=== PATIENT | female | born 1955 | race Caucasian/White ===

== ENCOUNTER → 2021-04-11 | Outpatient (CLI) | payer MEDICARE ==
[2015-03-11 15:32] VITALS: BP 149/74
[~2021-04-11] MED LIST: LOSA1TAB19 PO; SERT25TA PO
--- NOTE | 2021-04-11 18:17 | KCIC ---
Bilateral digital screening 2-D and 3-D (digital breast tomosynthesis) mammogram: Reason for examination: Routine screening. Comparison: Mammogram from 01/15/2017. Interpretation was made with the benefit of CAD. FINDINGS: Breast density: Category B. There are scattered areas of fibroglandular density. In the 6:30 position of the right breast, approximately 5 cm from the nipple at middle depth, there i s a new oval 1.5 cm mass. Slightly anterior to this there are smaller described masses measuring 6 mm 4 mm. There are other small oval circumscribed masses in both breasts which do not appear significantly jesu nged. No malignant appearing calcifications, or architectural distortion is seen. IMPRESSION: New masses in the 6:30 position of the right breast which need further evaluation with the targeted r ight breast ultrasound. Assessment: BI-RADS 0. Incomplete. Additional imaging is recommended. Recommendation: Targeted right breast ultrasound. The patient will be contacted with results and additional imaging scheduled. The patient will receive a letter with the results in the mail. Patient information will be entered into the mammography [employer] system with a target recall date for the next mammogram. A reminder letter will be generated. Electronically signed by: Saige Herrera MD (04/11/2021 6:14 PM) [email or web address]
== END ==
LOC: KCIC MAMMO 11:03
PROVIDERS: ATTEND Family Medicine
DX: Z12.31 Encounter for screening mammogram for malignant neoplasm of breast (principal)
CPT/HCPCS: 77063; 77067

== ENCOUNTER → 2021-05-05 | Outpatient (CLI) | payer MEDICARE ==
[2015-03-11 15:32] VITALS: BP 149/74
--- NOTE | 2021-05-05 12:18 | KCIC ---
Right breast ultrasound: Reason for examination: Nodular densities on screening mammogram. Comparison is made to mammographic exam dated 04/11/2021. Right whole breast ultrasound including evaluation of all 4 quadrants and the retroareolar and axilla ry regions of the right breast was performed. At the 6:30 position 4 cm from the nipple, there is a 7.6 mm hypoechoic fibrocystic type lesion with no abnormal vascularity present. At the 6:30 position 6 cm from the nipple, there is a 3.4 mm hypoech oic fibrocystic type nodule with no abnormal vascularity present. At the 7:00 position 7 cm from the nipple, there is a 2.6 mm hypoechoic fibrocystic lesion with no abnormal vascularity present. At the 7:00 position 7.5 cm from the nipple, there is a 3.5 mm hypoechoic fibrocystic type nodule showing no abnormal vascularity. No suspicious-appearing nodules are seen. No abnormal appearing lymph nodes ar e seen in the axilla. IMPRESSION: Multiple small nodules in the 6:30 and 7:00 positions which are subcentimeter in size and have appear ances consistent with fibrocystic nodules. Recommend 6 month follow-up with ultrasound. BI-RADS Category 3: Probably Benign. "Our facility is accredited by the [employer] Mammography [employer]." This patient's information has been entered into a reminder system for the patient to be notified wit h the results of her examination and a target date for the next mammogram. Electronically signed by: Ana Bryan MD (05/05/2021 12:16 PM) [email or web address]
== END ==
LOC: KCIC US 09:50
PROVIDERS: ATTEND Family Medicine
DX: N63.13 Unspecified lump in the right breast, lower outer quadrant (principal); R92.8 Other abnormal and inconclusive findings on diagnostic imaging of breast
CPT/HCPCS: 76641

== ENCOUNTER → 2021-11-23 | Outpatient (CLI) | payer MEDICARE ==
[2015-03-11 15:32] VITALS: BP 149/74
--- NOTE | 2021-11-23 15:59 | RAD ---
DIAGNOSTIC RIGHT BREAST ULTRASOUND INDICATION: Short interval follow-up for probably benign COMPARISON: 04/11/2021, 05/05/2021 FINDINGS: Redemonstrated multiple cystic lesions in the right breast which do not demonstrate significant beal e from comparison includin:30 position 4 cm from the nipple 1.1 x 1.2 x 0.5 cm irregular shaped a nechoic cyst with thick echogenic rim; 7:00, 7 cm from the nipple 0.4 x 0.3 x 0.3 cm anechoic cyst wi th well-defined back wall; 7:00, 7.5 cm from the nipple hypoechoic 0.3 x 0.3 x 0.2 cm cystic lesion w ith well-defined back wall; and 6:30 position 6 cm in the nipple hypoechoic 0.3 x 0.2 x 0.3 cm irregu lar shaped cystic lesion with well-defined back wall. No abnormal color Doppler blood flow. No enlarg ed axillary lymph nodes. No new lesions are identified. IMPRESSION: 1. Stable appearance of multiple fibrocystic lesions in the right breast compared to 6 months prior. ASSESSMENT: BI-RADS 3: Probably Benign. RECOMMENDATION: Short interval follow-up in 6 months to coincide with normal screening interval with bilateral diagnostic mammogram and right breast ultrasound. The facility will notify the patient of the results via mail. Patient information will be entered int o the mammography reminder system with a target recall date for the next mammogram. A reminder letter will be generated by the facility. Electronically signed by: Paras Mendez MD (11/23/2021 1:37 PM) [id number]
== END ==
LOC: US 10:51
PROVIDERS: ATTEND Family Medicine
DX: N60.01 Solitary cyst of right breast (principal); R92.8 Other abnormal and inconclusive findings on diagnostic imaging of breast
CPT/HCPCS: 76641